=== PATIENT | male | born 1985 | race African-American/Black ===

== ENCOUNTER 2022-11-19 21:45 | Emergency (ER) | payer MEDICAID ==
[~2022-11-19] VITALS: Ht 188 cm; Wt 105.0 kg
[2022-11-19 21:51] VITALS: O2SAT 100
[2022-11-19] MEDS ORDERED: ACETAMINOPHEN 325MG TABLET PO ONE (22:45)
[2022-11-19] MEDS ORDERED: HYDROCODONE/ACETAMINOPHEN 5/325MG TABLET PO ONE (22:45)
[2022-11-19] MEDS ORDERED: LIDOCAINE 5% PATCH TOP SCH (22:45)
[2022-11-20] MEDS ORDERED: ACETAMINOPHEN 325MG TABLET PO ONE (00:15)
[2022-11-20] MEDS ORDERED: HYDROCODONE/ACETAMINOPHEN 5/325MG TABLET PO NR (00:45)
[2022-11-20] MEDS ORDERED: NAPR-1074 MT (02:29)
[2022-11-20] MEDS ORDERED: LIDO700A15 TP (02:29)
[2022-11-20] MEDS ORDERED: BACL-141 MT (02:29)
[2022-11-20 06:00] VITALS: BP 118/76; PULSE 81; RESP 18; TEMP 98.2
== END 2022-11-20 06:09 | disposition home or self-care (01) ==
LOC: ER 21:45
DX: M54.50 Low back pain, unspecified (principal); J45.909 Unspecified asthma, uncomplicated; W18.39XA Other fall on same level, initial encounter; Y93.89 Activity, other specified; Y92.89 Other specified places as the place of occurrence of the external cause; Y99.8 Other external cause status
CPT/HCPCS: 70486; 72131; 99284